=== PATIENT | male | born 1960 ===

== ENCOUNTER 2018-05-10 09:28 | Outpatient (CLI) | payer OTHER ==
[~2018-05-10] VITALS: Ht 152.4 cm; Wt 95.3 kg
== END 2018-05-10 09:40 | disposition home or self-care (01) ==
LOC: OFIC 805 09:28
DX: H90.6 Mixed conductive and sensorineural hearing loss, bilateral (principal); H69.83 Other specified disorders of Eustachian tube, bilateral; J31.0 Chronic rhinitis; H80.83 Other otosclerosis, bilateral

== ENCOUNTER 2021-01-20 05:50 | Day surgery (SDC) | payer OTHER | END 2021-01-20 11:00 | disposition home or self-care (01) | LOC: AMB-ENDOS 05:50 | PROVIDERS: ATTEND Surgery | DX: D12.2 Benign neoplasm of ascending colon (principal); D12.3 Benign neoplasm of transverse colon; D12.5 Benign neoplasm of sigmoid colon; D12.8 Benign neoplasm of rectum; Z20.822 Contact with and (suspected) exposure to COVID-19; Z12.11 Encounter for screening for malignant neoplasm of colon ==